=== PATIENT | female | born 1960 | race Caucasian/White ===

== ENCOUNTER 2022-06-17 09:05 | Outpatient (CLI) | payer OTHER, SELFPAY ==
--- NOTE | 2022-06-17 09:15 | CRLHL7_ITS ---
For Patients: As a result of the Cures Act, medical imaging exams and procedure reports are released immediately into your electronic medical record. You may view this report before your referring provider. If you have questions, please contact your health care provider. BILATERAL MAMMOGRAM WITH COMPUTER-AIDED DETECTION AND TOMOSYNTHESIS TECHNIQUE: CC and MLO views were obtained. These mammographic images have been obtained using full-field digital technique. These mammographic images were interpreted with the benefit of computer-aided detection. Breast Tomosynthesis was used in this interpretation. COMPARISON FILM: 06/04/2021, 05/23/2020. FINDINGS: There are scattered areas of fibroglandular density IMPRESSION: There is no radiographic evidence for malignancy. ASSESSMENT: BI-RADS Category 1: Negative RECOMMENDATION: Routine screening mammogram in 1 year. A lay language report of this examination will be provided to the patient. Hilario Steele M.D. Diagnostic Radiologist [email or web address] / be/Dictated by: Hilario Steele MD @ 06/17/2022 10:07:00 AM (Electronically Signed)
== END 2022-06-17 09:06 | disposition home or self-care (01) ==
LOC: MAMMO 09:07
PROVIDERS: PCP Physician Assistant Medical; Visit Provider Physician Assistant Medical
DX: Z12.31 Encounter for screening mammogram for malignant neoplasm of breast (principal)
CPT/HCPCS: 77063; 77067

== ENCOUNTER 2023-06-30 08:56 | Outpatient (CLI) | payer OTHER, SELFPAY ==
--- NOTE | 2023-06-30 09:15 | CRLHL7_ITS ---
For Patients: As a result of the Cures Act, medical imaging exams and procedure reports are released immediately into your electronic medical record. You may view this report before your referring provider. If you have questions, please contact your health care provider. BILATERAL SCREENING MAMMOGRAM WITH COMPUTER-AIDED DETECTION AND TOMOSYNTHESIS TECHNIQUE: CC and MLO views were obtained. These mammographic images have been obtained using full-field digital technique. These mammographic images were interpreted with the benefit of computer-aided detection. Breast Tomosynthesis was used in this interpretation. COMPARISON FILM: 06/17/22, 06/04/21, 05/23/20. FINDINGS: There are scattered areas of fibroglandular density IMPRESSION: There is no radiographic evidence for malignancy. ASSESSMENT: BI-RADS Category 1: Negative RECOMMENDATION: Routine screening mammogram in 1 year. A lay language report of this examination will be provided to the patient. Hilario Steele M.D. Diagnostic Radiologist [email or web address] REINA/[email or web address] Transcribed: 4:38 p.mHarshad low/Dictated by: Hilario Steele MD @ 06/30/2023 11:03:00 AM (Electronically Signed)
== END 2023-06-30 08:57 | disposition home or self-care (01) ==
LOC: MAMMO 08:57
PROVIDERS: PCP Physician Assistant Medical; Visit Provider Physician Assistant Medical
DX: Z12.31 Encounter for screening mammogram for malignant neoplasm of breast (principal)
CPT/HCPCS: 77063; 77067

== ENCOUNTER 2024-04-12 07:41 | Outpatient (CLI) | payer OTHER, SELFPAY | END 2024-04-12 07:42 | disposition home or self-care (01) | PROVIDERS: PCP Physician Assistant Medical; Visit Provider Physician Assistant Medical | DX: Z13.228 Encounter for screening for other metabolic disorders (principal); Z13.220 Encounter for screening for lipoid disorders; Z13.29 Encounter for screening for other suspected endocrine disorder | CPT/HCPCS: 80053; 80061; 84443 ==

== ENCOUNTER 2024-07-12 08:56 | Outpatient (CLI) | payer OTHER, SELFPAY ==
--- NOTE | 2024-07-12 09:15 | CRLHL7_ITS ---
For Patients: As a result of the Cures Act, medical imaging exams and procedure reports are released immediately into your electronic medical record. You may view this report before your referring provider. If you have questions, please contact your health care provider. BILATERAL SCREENING MAMMOGRAM WITH COMPUTER-AIDED DETECTION AND TOMOSYNTHESIS TECHNIQUE: CC and MLO views were obtained. These mammographic images have been obtained using full-field digital technique. These mammographic images were interpreted with the benefit of computer-aided detection. Breast Tomosynthesis was used in this interpretation. COMPARISON FILM: 06/30/23, 06/17/22, 06/04/21. FINDINGS: There are scattered areas of fibroglandular density IMPRESSION: There is no radiographic evidence for malignancy. ASSESSMENT: BI-RADS Category 1: Negative RECOMMENDATION: Routine screening mammogram in 1 year. A lay language report of this examination will be provided to the patient. Hilario Steele M.D. Diagnostic Radiologist [email or web address] REINA/[email or web address] Transcribed: 6:36 p.mHarshad low/Dictated by: Hilario Steele MD @ 07/12/2024 11:56:00 AM (Electronically Signed)
== END 2024-07-12 08:57 | disposition home or self-care (01) ==
LOC: MAMMO 08:57
PROVIDERS: PCP Physician Assistant Medical; Visit Provider Physician Assistant Medical
DX: Z12.31 Encounter for screening mammogram for malignant neoplasm of breast (principal)
CPT/HCPCS: 77063; 77067

== ENCOUNTER 2024-12-03 23:28 | Emergency (ER) | payer OTHER, SELFPAY ==
--- OUTSIDE RECORDS SUMMARY | 2024-12-03 23:30 | XMS_ITS | Clinical Summary ---
Author Organization [facility] Address [place], [place] [address] Care Team Providers Care Molded Goods Inspector Trimmer Name Role Phone Yumiko Sierra MD Primary Care Provider [phone] Allergies No known active allergies Medications amoxicillin (AMOXIL) 875 mg tablet TAKE 1 TABLET BY MOUTH TWICE DAILY FOR 14 DAYS 28 tablet 12/05/2018 6:18 PM ADHESIVE BONDING MACHINE OPERATOR 12/05/2018 Active predniSONE (DELTASONE) 20 mg tablet TAKE 1 TABLET BY MOUTH TWICE DAILY FOR 5 DAYS 10 tablet 12/05/2018 6:18 PM ADHESIVE BONDING MACHINE OPERATOR 12/05/2018 Active Active Problems No known active problems Family History Medical History Relation Name Comments Cancer-breast No Family History Social History Tobacco Use Types Packs/Day Years Used Date Smoking Tobacco: Never Assessed Comments No Sex and Gender Information Value Date Recorded Sex Assigned at Not on file Legal Sex Female 7:27 AM ADHESIVE BONDING MACHINE OPERATOR Gender Identity Not on file Sexual Orientation Not on file Obstetrics History Last Filed Vital Signs Vital Sign Reading Time Taken Comments Blood Pressure 130/78 11/03/2018 11:00 AM ADHESIVE BONDING MACHINE OPERATOR Pulse 83 11/03/2018 11:00 AM ADHESIVE BONDING MACHINE OPERATOR Temperature 36.8 C (98.2 F) 11/03/2018 11:00 AM ADHESIVE BONDING MACHINE OPERATOR Respiratory Rate - - Oxygen Saturation 98% 11/03/2018 11:00 AM ADHESIVE BONDING MACHINE OPERATOR Inhaled Oxygen Concentration - - Weight - - Height - - Body Mass Index - - Plan of Treatment Not on file [place] [address] [place] [address] Care Teams Molded Goods Inspector Trimmer Relationship Specialty [place] [address] [place] [address] PCP - General 12/15/07
--- OUTSIDE RECORDS SUMMARY | 2024-12-03 23:30 | XMS_ITS | Clinical Summary ---
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
--- OUTSIDE RECORDS SUMMARY | 2024-12-03 23:30 | XMS_ITS | Encounter Summary ---
Author Organization [facility] Address [address] [place] [address] Care Team Providers Care Art Historian Name Role Phone Magdalena Slaughter PA-C Primary Care Provider [phone] Encounter Details Date Type Department Care Team (Late st Contact Info) Description 06/13/[address] [place] [address] Dyll[place] [address] Social History Tobacco Use Types Packs/Day Years Used Date Smoking Tobacco: Never Assessed Comments Unknown Sex and Gender Information Value Date Recorded Sex Assigned at Not on file Legal Sex Female 3:18 AM THERAPIST PHYS Gender Identity Not on file Sexual Orientation Not on file documented as of this encounter Plan of Treatment Not on file documented as of this encounter Visit Diagnoses Not on filedocumented in this encounter Care Teams Art Historian Relationship Specialty Start Date End Date Magdalena Slaughter PA-C [facility] [address] [place] [address] PCP - General 08/28/20 documented as of this encounter
--- OUTSIDE RECORDS SUMMARY | 2024-12-03 23:30 | XMS_ITS | Continuity of Care Document ---
Author Name [facility] Address Unknown Organization Unknown Address Unknown Procedures FILTER APPLIED:Only known Procedures with Onset Date within the last 5 years Procedure Date Procedure Provider Additional Inform ation Status COMPREHEN METABOLIC PANEL (75594) Completed ASSAY THYROID STIM HORMONE (70407) Completed LIPID PANEL (13288) Comp leted Encounters FILTER APPLIED:Only known Encounters with Admission Date within the last 5 years Encounter Location Admission Discharge Billing Code Blending Machine Feeder [facility] Magdalena Slaughter
--- OUTSIDE RECORDS SUMMARY | 2024-12-03 23:30 | XMS_ITS | Referral Summary ---
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
[2024-12-03 23:49] VITALS: BP 147/83; PULSE 79; RESP 16; TEMP 36.8; O2SAT 100; BMI 25.0
--- NOTE | 2024-12-04 00:26 | ED_ITS ---
HPI - General Adult General Chief complaint: Abdominal Pain Stated complaint: Pain left side of lower back Time Seen by Provider: 12/03/24 23:57 Source: patient Mode of arrival: ambulatory History of Present Illness HPI narrative: 64-year-old female presents the emergency department with left flank pain for the past day and half, initially intermittent now more constant and achy. Intermittent vomiting but only with spasms of pain. No obvious hematuria or dysuria. No prior history of kidney stones. Pain is at the lower left flank area, no other areas. Abdomen does feel a little bit bloated and distended. Because of this she thought she could potentially be constipated though she was having regular bowel movements and she tried a suppository and did get a small result but it was soft and it did not improve her symptoms in any way. Denies use of Tylenol and ibuprofen. No fever. No trauma or injury. No history of colitis or prior abdominal surgery. No history of obstructions. Is having some mild chills and body aches also that started a few hours after the initial flank pain. Past medical history benign per her report. No abdominal surgery history no prescription medications no allergies no long-term medical problems. Nonsmoker. ROS is notable for the flank, GI symptoms and generalized symptoms as above only, otherwise denies times 12 systems. Related Data Home Medications ?Medication ?Instructions ?Recorded ?Confirmed cholecalciferol (vitamin D3) 25 25 mcg PO DAILY 04/07/23 12/03/24 mcg (1,000 unit) tablet cranberry 500 mg capsule 500 mg PO BID 04/07/23 12/03/24 multivitamin (Daily Multi-Vitamin 1 tab PO QAM 04/07/23 12/03/24 tablet) Previous Rx's ?Medication ?Instructions ?Recorded tamsulosin 0.4 mg capsule (Flomax) 0.4 mg PO DAILY PRN #20 caps 12/04/24 Allergies Allergy/AdvReac Type Severity Reaction Status Date / Time seasonal pollens Allergy Mild congestion Uncoded 04/12/24 07:35 [facility] Medical History History of colonic polyps (03/25/16) ?Z86.010 - Personal history of colonic polyps (ICD-10) Surgical History History of placement of ear tubes ?Z96.22 - Myringotomy tube(s) status (ICD-10) History of tubal ligation (1988) ?Z98.51 - Tubal ligation status (ICD-10) Family History Aunt Diabetes, Onset Age: 75 Father Heart disease Hypothyroidism Prostate cancer Maternal Grandfather Heart disease Mother Heart disease Brother Juvenile rheumatoid arthritis Social History Narrative: Has 3 children Non-smoker What is your current living situation?: I presently have a place to live Problems where you live: no known problems In the past 12 months, utilities in danger of being shut off: no In past 12 months, lack of transportation kept you from medical appts, meetings, work, or getting things needed for daily living: no In the past 12 mos, have been you worried that your food would run out before you had money to buy more?: never true In the past 12 mos, the food you bought just didn't last and you didn't have money to buy more?: never true Smoking Status: Never smoker How often does anyone, including family, friends and others, physically hurt you : never How often does anyone, including family, friends and others, insult or talk down to you: never How often does anyone, including family, friends and others, threaten you with harm: never How often does anyone, including family, friends and others, scream or curse at you: never Exam Const: Vital Signs, click to edit/add: Vital Signs - 24 hr 12/03/24 23:49 Temperature 98.3 F Pulse Rate [Pulse Oximeter] 79 Respiratory Rate 16 Blood Pressure [Ri ght Upper Arm] 147/83 H Pulse Oximetry 100 Oxygen Delivery Me thod Room Air Documenting provider has reviewed patient's vital signs: yes Common normals: no apparent distress and alert General appearance: well kempt Other: Friendly cooperative, great historian HENMT: Common normals: normocephalic, moist oral mucous membranes, oropharynx normal and dentition normal Head and scalp: normocephalic Mouth: oral and palatal mucosa normal Eye: Common normals: conjunctivae normal General eye: normal appearance of both eyes Conjunctiva: conjunctiva(e) normal Neck & C-Spine: Common normals: no lymphadenopathy General: normal visual inspection Resp: Common normals: normal respiratory effort, no use of accessory muscles and clear to auscultation bilaterally Effort & inspection: able to speak in complete sentences Auscultation: clear to auscultation bilaterally Cardio: Common normals: regular rate, regular rhythm, S1 normal heart sound, S2 normal heart sound and no murmurs Rate: regular rate Rhythm: regular rhythm Heart sounds: S1 normal and S2 normal GI: Common normals: Normal to inspection, nondistended, normoactive bowel sounds present, soft to palpation, non-tender, no hepatosplenomegaly and no masses Palpation: soft and no hepatosplenomegaly : Other: Left lower CVA tenderness, right side normal Back & Pelvis: Common normals: thoracic and lumbar spine normal to inspection Extremity: Common normals: normal to inspection and normal capillary refill Neuro: Common normals: moves all extremities Sensorium/orientation: alert Psych: Appearance: well kempt Attitude: engaged Insight: insight good Judgement: judgment good Skin: Common normals: no rashes or lesions noted General skin exam: no rashes or lesions noted Course Course ED Course: 64-year-old female with left flank pain suspicious for kidney stone. Cannot exclude pyelonephritis, musculoskeletal injury. Less likely shingles due to the fact that skin exam was benign. Cannot exclude intra-abdominal process, colitis, proctitis, and collateral issue, musculoskeletal issue, radiculopathy, amongst others. Patient is having difficulty giving urine sample. Will place peripheral IV and bolus 500 mL of normal saline. Typical intra-abdominal labs. If urinalysis shows microscopic blood, as expected will order CT without contrast. I am hesitant to order this without a urine sample as I do not Wanna half to radiate her twice. Will give Toradol and Zofran IV, await findings. Reevaluation(s) Time of Reevaluation #1: 02:50 Reevaluation #1: Patient counseled on findings, left 5-6 mm med ureteral stone, only a mild amount of hydronephrosis.. Feeling somewhat better after the Toradol. No further episodes of vomiting. Tolerated the IV fluids well. Remainder of labs do show a very mild leukocytosis but an elevated neutrophil count. I do think starting her on antibiotics a good idea. Remainder of labs are unremarkable. Will start ciprofloxacin 500 mg p.o. b.i.d., 1st dose here in the ED. Counseled on Flomax. Low potential benefit but very low risk of harm. May help with spasms, rationale discussed. First dose given here in ED. Additional prescriptions for Toradol and Zofran given through [facility] as well as the Cipro. Will receive Tylenol as well before she leaves and proper dosing discussed. Patient given information for [facility]. This may require i ntervention but hopefully not. Rationale discussed and alarm symptoms extensively reviewed, written instructions provided. She will need to call [facility] in the morning to set up an appointment. Strain her urine and come back to the ED if any signs of worsening. She verbalizes understanding and agreement. Vital Signs Vital signs: Initial Vital Signs Temperature 98.3 F 12/03/24 23:49 Temperature Source Temporal Artery Scan 12/03/24 23:49 Pulse Rate 79 12/03/24 23:49 Respiratory Rate 16 12/03/24 23:49 Blood Pressure 147/83 H 12/03/24 23:49 Blood Pressure Mean 104 12/03/24 23:49 Blood Pressure Position Sitting 12/03/24 23:49 Pulse Oximetry 100 12/03/24 23:49 Oxygen Delivery Method Room Air 12/03/24 23:49 Vital Signs Temperature 98.3 F 12/03/24 23:49 Pulse Rate 79 12/03/24 23:49 Respiratory Rate 16 12/03/24 23:49 Blood Pressure 147/83 H 12/03/24 23:49 Pulse Oximetry 100 12/03/24 23:49 Oxygen Delivery Method Room Air 12/03/24 23:49 Temperature 98.3 F 12/03/24 23:49 Pulse Rate 79 12/03/24 23:49 Respiratory Rate 16 12/03/24 23:49 Blood Pressure 147/83 H 12/03/24 23:49 Pulse Oximetry 100 12/03/24 23:49 Oxygen Delivery Method Room Air 12/03/24 23:49 Medications Administered Medications: Discontinued Medications Generic Name Dose Route Start Last Admin Trade Name Freq PRN Reason Stop Dose Admin Sodium Chloride 500 mls @ 500 mls/hr 12/04/24 00:24 12/04/24 01:27 0.9 % Sodium Chloride 500 Ml IV 12/04/24 01:23 Infused .Q1H ONE Infusion Ketorolac Tromethamine 15 mg 12/04/24 00:24 12/04/24 00:36 Ketorolac 15 Mg/Ml Inj IVP 12/04/24 00:25 15 mg ONCE ONE Administration Ondansetron HCl 4 mg 12/04/24 00:24 12/04/24 00:36 Ondansetron 2 Mg/Ml Inj IVP 12/04/24 00:25 4 mg ONCE ONE Administration Medical Decision Making Lab Data Lab results reviewed: Yes I reviewed the patient's lab results Lab results narrative: Mild leukocytosis with left shift, good renal function. CRP, electrolytes all normal as expected Labs: Lab Results 12/04/24 12/04/24 Range/Units 00:41 01:20 WBC 16.51 H (4.50-11.00) K/uL RBC 4.86 (4.00-5.20) m/uL Hgb 13.6 (12.0-16.0) gm/dL Hct 42.1 (33.0-51.0) % MCV 87 (80-100) fL MCH 28 (26-34) pg MCHC 32 (32-36) gm/dL RDW Coeff of Jimmy 12.7 (11.5-15.5) % Plt Count 326 (140-440) K/uL Neut % (Auto) 84.9 H (42.0-72.0) % Lymph % (Auto) 7.7 L (20-44) % [place] % (Auto) 6.6 (0.0-11.0) % Eos % (Auto) 0.4 (0.0-7.0) % Baso % (Auto) 0.2 (0.0-3.0) % Neut # (Auto) 14.00 H (1.7-7.0) K/uL Lymph # (Auto) 1.30 (0.90-2.90) K/uL [place] # (Auto) 1.10 H (0.00-0.90) K/UL Eos # (Auto) 0.10 (0.00-0.50) K/uL Baso # (Auto) 0.00 (0.00-0.30) K/uL Abs Immat Gran (auto) 0.00 (0.00-0.30) K/uL Imm/Tot Granulo (auto) 0.2 % Sodium 129 L (135-149) mmol/L Potassium 3.8 (3.6-5.1) mmol/L Chloride 96 (96-114) mmol/L Carbon Dioxide 25 (20-32) mmol/L Anion Gap 8 (7-15) mEq/L BUN 17 (7-30) mg/dL Creatinine 0.7 (0.5-1.5) mg/dL Estimated Creat Clear 51.81 Estimated GFR 97 ml/min Glucose 122 H (60-115) mg/dL Lactate 1.0 (0.5-1.9) mmol/L Calcium 8.8 (8.4-10.6) mg/dL Total Bilirubin 1.3 (0.1-1.5) mg/dL AST 25 (12-35) U/L ALT 23 (4-35) U/L Alkaline Phosphatase 66 (40-150) U/L C-Reactive Protein 0.7 (0.5-1.0) mg/dL Total Protein 7.7 (6.0-8.3) g/dL Albumin 4.5 (3.3-5.0) g/dL Lipase 76 (23-300) U/L Urine Color Yellow (Yellow) Urine Appearance Cloudy A (Clear) Urine pH 6.0 (5.0-8.5) Ur Specific [place] 1.025 (1.000-1.030) Urine Protein Trace A (Negative) Urine Glucose (UA) Negative (Negative) Urine Ketones 1+ A (Negative) Urine Blood 3+ A (Negative) Urine Nitrite Negative (Negative) Urine Bilirubin Negative (Negative) Urine Urobilinogen 0.2 (0.2-1.0) Ur Leukocyte Esterase Negative (Negative) Urine RBC 10-25 A (0-2) Urine WBC 0-2 (0-5) Ur Squamous Epith Cells Few (None-Few) Urine Bacteria Few A (None) SARS-CoV-2 (PCR) Negative SARS-CoV-2 (Negative) Influenza Type A (PCR) Negative PCR FLU A (Negative) Influenza Type B (PCR) Negative PCR FLU B (Negative) RSV (PCR) Negative PCR RSV (Negative) Imaging Data CT scan - abdomen: Attestation: I have reviewed the pertinent imaging results. My impression: 5.7 mm left proximal to mid ureteral stone, mild hydronephrosis Radiologist's impression: Impression: 1. There is a 6 millimeter obstructing left mid ureteral stone with mild to moderate hydronephrosis. 2. Additional nonobstructing left renal stones present. 3. Cholelithiasis. Please note that all CT scans at this facility use dose modulation, iterative reconstruction, and/or weight-based dosing when appropriate to reduce radiation dose to as low as reasonably achievable. Discharge Plan Discharge Clinical Impression: Left ureteral stone Patient Disposition: Home, Self-Care Condition: Improved Instructions: How to Strain Your Urine (ED), Ureteral Stones (ED) Additional Instructions: As we discussed, you have a 5.7 mm stone in the left mid ureter. You may be able to pass this without additional intervention. However, it may require surgery and a stent if it does not pass. It is important that you call the urologist in the morning to make an appointment for evaluation. It may take a couple of weeks to get in and if you pass the stone in the meantime, you may cancel the appointment. As discussed, you do have a few more stones up in the kidneys that are not problematic at this time. Please call [place] [facility] at Call: [phone] to schedule your appointment.. You do have a mildly elevated white count, therefore I am recommending that we start you on an antibiotic called ciprofloxacin. You will take 1 pill 2 times daily for 7 days. You were given your 1st dose here in the emergency department. For pain, I recommend Tylenol 1000 mg every 6 hours. On top of this, please at in Toradol. This is a prescription that you were given in the ED. Do not take additional ibuprofen or Aleve while taking the Toradol. Take 1 pill every 6 hours as needed for discomfort. I will also give you a very small supply of oxycodone, the stronger narcotic pain medication. I am hoping that you do not need this but as discussed, often there is more pain as the stone moves down and close to the bladder. You may take that medication if things worsen. I have also given you a small supply of Zofran which is an anti nausea medication just in case the vomiting becomes problematic again. I have also sent a prescription for Flomax which is a prostate medicine that we commonly use with kidney stones. I find that it does cut down on spasms associated with kidney stones and may help the stone pass more easily. There seems to be a small benefit but it is very low risk. He will continue taking this once daily and may stop it once the stone passes. This is the only prescription that was sent to your pharmacy. High fevers, severe weakness would not be expected. Please return to the emergency department if these occur. Straining your urine will help you know when the stone passes. Activity Level: No Restrictions Discharge Diet: Regular Prescriptions: New tamsulosin [Flomax] 0.4 mg capsule 0.4 mg PO DAILY PRNQty: 20 0RF Rx Instructions: Take once daily to help kidney stone passed, may discontinue once stone passes. No Action multivitamin [Daily Multi-Vitamin] Tablet 1 tab PO QAM cholecalciferol (vitamin D3) 25 mcg (1,000 unit) tablet 25 mcg PO DAILY cranberry 500 mg capsule 500 mg PO BID Rx Instructions: administer with meals Follow Up/Referrals: Magdalena Slauhgter PA-C [Primary Care Provider] - Stand Alone Forms: [employer] Info Instructions
[2024-12-04] MEDS: 0.9 % SODIUM CHLORIDE 500 ML 500 ML IV (00:36)
[2024-12-04] MEDS: ONDANSETRON 2 MG/ML inj 4 MG IVP (00:36)
[2024-12-04] MEDS: KETOROLAC 15 MG/ML inj IVP (00:36)
--- OUTSIDE RECORDS SUMMARY | 2024-12-04 00:45 | XMS_ITS | Clinical Summary ---
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
--- OUTSIDE RECORDS SUMMARY | 2024-12-04 00:45 | XMS_ITS | Referral Summary ---
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
--- OUTSIDE RECORDS SUMMARY | 2024-12-04 00:45 | XMS_ITS | Encounter Summary ---
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
--- OUTSIDE RECORDS SUMMARY | 2024-12-04 00:45 | XMS_ITS | Clinical Summary ---
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 LAP MAKER 12/05/2018 Active predniSONE (DELTASONE) 20 mg tablet TAKE 1 TABLET BY MOUTH TWICE DAILY FOR 5 DAYS 10 tablet 12/05/2018 6:18 PM LAP MAKER 12/05/2018 Active Active Problems No known active problems Family History Medical History Relation Name Comments Cancer-breast No Family History Social History Tobacco Use Types Packs/Day Years Used Date Smoking Tobacco: Never Assessed Comments No Sex and Gender Information Value Date Recorded Sex Assigned at Not on file Legal Sex Female 7:27 AM LAP MAKER Gender Identity Not on file Sexual Orientation Not on file Obstetrics History Last Filed Vital Signs Vital Sign Reading Time Taken Comments Blood Pressure 130/78 11/03/2018 11:00 AM LAP MAKER Pulse 83 11/03/2018 11:00 AM LAP MAKER Temperature 36.8 C (98.2 F) 11/03/2018 11:00 AM LAP MAKER Respiratory Rate - - Oxygen Saturation 98% 11/03/2018 11:00 AM LAP MAKER Inhaled Oxygen Concentration - - Weight - - Height - - Body Mass Index - - Plan of Treatment Not on file [place] [address] [address] [place] [address] Care Teams Law Firm Administrator Relationship Specialty [place] [address] [place] [address] PCP - General 12/15/07
--- OUTSIDE RECORDS SUMMARY | 2024-12-04 00:46 | XMS_ITS | Continuity of Care Document ---
Author Name [facility] Address Unknown Organization Unknown Address Unknown Procedures FILTER APPLIED:Only known Procedures with Onset Date within the last 5 years Procedure Date Procedure Provider Additional Inform ation Status COMPREHEN METABOLIC PANEL (77105) Completed ASSAY THYROID STIM HORMONE (85890) Completed LIPID PANEL (01537) Comp leted Encounters FILTER APPLIED:Only known Encounters with Admission Date within the last 5 years Encounter Location Admission Discharge Billing Code [employer] [facility] Magdalena Slaughter
[2024-12-04 00:48] LABS: Basophils Percent Auto 0.2 % (0.0-3.0); Eosinophils Percent Auto 0.4 % (0.0-7.0); Hematocrit 42.1 % (33.0-51.0); Hemoglobin* 13.6 gm/dL (12.0-16.0); Immature Granulocytes Pct Auto 0.2 %; Lymphocytes Percent Auto 7.7 % (20-44); Mean Corpuscular HGB Conc 32 gm/dL (32-36); Mean Corpuscular Hemoglobin 28 pg (26-34); Mean Corpuscular Volume 87 fL (80-100); Monocytes Percent Auto 6.6 % (0.0-11.0); Neutrophils Percent Auto 84.9 % (42.0-72.0); Platelet Count* 326 K/uL (140-440); RDW Coefficient of Variation % 12.7 % (11.5-15.5); Red Blood Count 4.86 m/uL (4.00-5.20); White Blood Count* 16.51 K/uL (4.50-11.00)
[2024-12-04 00:55] LABS: Slide Review Reflex No
[2024-12-04 01:04] LABS: Chloride* 96 mmol/L (96-114)
[2024-12-04 01:05] LABS: Albumin* 4.5 g/dL (3.3-5.0); Sodium* 129 mmol/L (135-149)
[2024-12-04 01:07] LABS: Creatinine* 0.7 mg/dL (0.5-1.5); Est. Creatinine Clearance* 51.81; Estimated Glomerular Filt Rate 97 ml/min
[2024-12-04 01:08] LABS: Alkaline Phosphatase* 66 U/L (40-150); Anion Gap 8 mEq/L (7-15); Bilirubin Total* 1.3 mg/dL (0.1-1.5); Carbon Dioxide* 25 mmol/L (20-32); Lipase* 76 U/L (23-300); Total Protein* 7.7 g/dL (6.0-8.3)
[2024-12-04 01:09] LABS: Alanine Aminotransferase* 23 U/L (4-35); Blood Urea Nitrogen* 17 mg/dL (7-30); Calcium* 8.8 mg/dL (8.4-10.6); Glucose* 122 mg/dL (60-115)
[2024-12-04 01:11] LABS: C Reactive Protein* 0.7 mg/dL (0.5-1.0)
[2024-12-04 01:25] LABS: PCR FLU A Negative PCR FLU A (Negative); PCR FLU B Negative PCR FLU B (Negative); PCR RSV Negative PCR RSV (Negative); SARS PCR* Negative SARS-CoV-2 (Negative)
[2024-12-04 01:30] LABS: Appearance Urine Cloudy (Clear); Bilirubin Urine Negative (Negative); Blood Urine 3+ (Negative); Color Urine Yellow (Yellow); Glucose Urine Negative (Negative); Ketones Urine 1+ (Negative); Leukocyte Esterase Urine Negative (Negative); Nitrite Urine Negative (Negative); Protein Urine Trace (Negative); Specific Gravity Urine 1.025 (1.000-1.030); Urobilinogen Urine 0.2 (0.2-1.0)
[2024-12-04 01:37] LABS: Aspartate Amino Transferase* 25 U/L (12-35); Potassium* 3.8 mmol/L (3.6-5.1)
[2024-12-04 01:40] LABS: Bacteria Urine Few; Squamous Epithelial Cell Urine Few (None-Few); WBC Urine 0-2 (0-5)
--- NOTE | 2024-12-04 01:42 | CRLHL7_ITS ---
For Patients: As a result of the Century Cures Act, medical imaging exams and procedure reports are released immediately into your electronic medical record. You may view this report before your referring provider. If you have questions, please contact your health care provider. Indication: Left flank pain, hematuria Technique: Noncontrast CT through the abdomen and pelvis with multiplanar reformats. Comparison: None Findings: Lower chest: Mild bibasilar atelectasis and/or scarring. Hepatobiliary: No significant parenchymal abnormality is appreciated. Cholelithiasis. Spleen: Unremarkable. Pancreas: No acute abnormality appreciated. Adrenal glands: No acute abnormality appreciated. Kidneys: There is a 6 millimeter left mid ureteral stone with mild to moderate hydronephrosis. Additional nonobstructing left renal stones present. Bowel: No obstruction. No focal perienteric or pericolonic stranding is appreciated. Vascular: Poorly evaluated on this noncontrast examination. Lymph nodes: No gross lymphadenopathy. Peritoneum: No free air. No free fluid. : No acute abnormality appreciated. Soft tissues: No acute abnormality appreciated. Bones: No acute fracture. No lytic or blastic lesion. Mild spondylosis. Impression: 1. There is a 6 millimeter obstructing left mid ureteral stone with mild to moderate hydronephrosis. 2. Additional nonobstructing left renal stones present. 3. Cholelithiasis. Please note that all CT scans at this facility use dose modulation, iterative reconstruction, and/or weight-based dosing when appropriate to reduce radiation dose to as low as reasonably achievable. Dictated by Pio Chacon MD @ 12/04/2024 2:22:30 AM (Electronically Signed)
[2024-12-04] MEDS: ACETAMINOPHEN 650 MG TABLET ER 1300 MG PO (02:53)
[2024-12-04] MEDS: CIPROFLOXACIN 500 MG TABLET PO (02:53)
[2024-12-04] MEDS: TAMSULOSIN HCL 0.4 MG CAPSULE PO (02:53)
== END 2024-12-04 03:12 | disposition home or self-care (01) ==
PROVIDERS: Emergency Provider Family Medicine; PCP Physician Assistant Medical
DX: N20.1 Calculus of ureter (principal)
CPT/HCPCS: 36415; 74176; 80053; 81001; 83605; 83690; 85025; 86140; 87086; 87631; 96374; 96375; 99284; A9270; J1885; J2405; J7030

== ENCOUNTER 2025-09-12 07:47 | Outpatient (CLI) | payer OTHER, SELFPAY ==
--- NOTE | 2025-09-12 08:15 | CRLHL7_ITS ---
For Patients: As a result of the Century Cures Act, medical imaging exams and procedure reports are released immediately into your electronic medical record. You may view this report before your referring provider. If you have questions, please contact your health care provider. INDICATION: BILATERAL SCREENING MAMMOGRAM, ASYMPTOMATIC 65 Y/O FEMALE COMPARISON: 07/12/2024, 06/30/2023, 06/17/2022 TECHNIQUE: Digital mammogram in CC and MLO projections including computer-aided detection (CAD) and tomosynthesis. BREAST COMPOSITION: There are scattered areas of fibroglandular density. FINDINGS: No suspicious findings. ASSESSMENT: BI-RADS 1 Negative RECOMMENDATION: Annual screening mammogram. A lay language report of this examination will be provided to the patient. Dictated by: Arelis Rodriguez MD @ 09/14/2025 07:29:10 (Electronically Signed)
== END 2025-09-12 07:48 | disposition home or self-care (01) ==
LOC: MAMMO 07:48
PROVIDERS: PCP Physician Assistant Medical; Visit Provider Physician Assistant Medical
DX: Z12.31 Encounter for screening mammogram for malignant neoplasm of breast (principal)
CPT/HCPCS: 77063; 77067